=== PATIENT | female | born 1955 ===

== ENCOUNTER → 2024-05-28 08:04 | Outpatient (CLI) | payer OTHER ==
[2024-05-28 08:57] LABS: CREATININE SERUM 0.65 mg/dL (0.55-1.02); GFR 89.85
== END | disposition home or self-care (01) ==
LOC: LAB 08:04
DX: E11.9 Type 2 diabetes mellitus without complications (principal)

== ENCOUNTER → 2024-05-28 | Outpatient (CLI) | payer OTHER | END | disposition home or self-care (01) | LOC: TOM 08:06 | PROVIDERS: ATTEND Internal Medicine Cardiovascular Disease | DX: R10.11 Right upper quadrant pain (principal); E11.9 Type 2 diabetes mellitus without complications; I11.9 Hypertensive heart disease without heart failure | CPT/HCPCS: 74178; Q9965 ==